=== PATIENT | female | born 1970 | race Caucasian/White ===

== ENCOUNTER 2017-04-07 07:55 | Outpatient (RCR) | payer OTHER ==
[2017-01-09 07:35] VITALS: BP 146/88
[2017-01-09] MEDS: OMALIZUMAB 150 MG (XOLAIR) VIAL FREE STOCK SQ SCH (08:10)
[2017-01-09 10:10] VITALS: BP 146/88
[2017-02-06] MEDS: OMALIZUMAB 150 MG (XOLAIR) VIAL FREE STOCK SQ SCH (08:30)
[2017-02-06 08:55] VITALS: BP 136/87
[2017-03-10] MEDS: OMALIZUMAB 150 MG (XOLAIR) VIAL FREE STOCK SQ SCH (08:34)
[2017-03-10 09:02] VITALS: BP 139/86
[~2017-04-07] VITALS: Ht 165.1 cm; Wt 69.0 kg
[~2017-04-07 07:55] MED LIST: EPIN0.3P2 IJ; LEVO5TAB12 PO; NF-METHI10 PO
[2017-04-07] MEDS: OMALIZUMAB 150 MG (XOLAIR) VIAL FREE STOCK SQ SCH (08:26)
[2017-04-07 08:46] VITALS: BP 159/89
== END 2017-04-09 | disposition home or self-care (01) ==
LOC: SDC 07:55
PROVIDERS: ATTEND Otolaryngology Otolaryngology/Facial Plastic Surgery
DX: L50.9 Urticaria, unspecified (principal)
CPT/HCPCS: 96372

== ENCOUNTER 2017-05-05 07:51 | Outpatient (RCR) | payer OTHER ==
[~2017-05-05] VITALS: Ht 165.1 cm; Wt 69.0 kg
[2017-05-05] MEDS ORDERED: OMALIZUMAB SUB-Q 150 MG (XOLAIR) VIAL SQ SCH (08:15)
[2017-05-05] MEDS ORDERED: OMALIZUMAB 150 MG (XOLAIR) VIAL FREE STOCK SQ SCH (08:15)
[2017-05-05 09:00] VITALS: BP 167/96
== END 2017-05-24 | disposition home or self-care (01) ==
LOC: SDC 07:51
PROVIDERS: ATTEND Otolaryngology Otolaryngology/Facial Plastic Surgery
DX: L50.9 Urticaria, unspecified (principal)
CPT/HCPCS: 96372

== ENCOUNTER 2017-08-15 10:34 | Outpatient (RCR) | payer OTHER ==
[2017-06-02 07:55] VITALS: BP 140/88
[2017-06-02] MEDS: OMALIZUMAB 150 MG (XOLAIR) VIAL FREE STOCK SQ SCH (08:47)
[2017-06-30] MEDS: OMALIZUMAB 150 MG (XOLAIR) VIAL FREE STOCK SQ SCH (08:30)
[2017-06-30 08:32] VITALS: BP 140/91
[~2017-08-15] VITALS: Ht 165.1 cm; Wt 69.0 kg
[~2017-08-15 10:34] MED LIST changes: +EPINEPHrine INJECTION 1 MG/ML AMP SC PRN; +diphenhydrAMINE 50 MG/ML INJ (BENADRYL) IV PRN
[2017-08-15] MEDS: OMALIZUMAB 150 MG (XOLAIR) VIAL FREE STOCK SQ SCH (11:10)
[2017-08-15 11:24] VITALS: BP 147/85
== END 2017-08-31 | disposition home or self-care (01) ==
LOC: SDC 10:34
PROVIDERS: ATTEND Otolaryngology Otolaryngology/Facial Plastic Surgery
DX: L50.9 Urticaria, unspecified (principal)
CPT/HCPCS: 96372

== ENCOUNTER 2017-12-10 08:00 | Outpatient (RCR) | payer OTHER ==
[2017-09-12] MEDS: OMALIZUMAB SUB-Q 150 MG (XOLAIR) VIAL SQ SCH (08:51)
[2017-09-12 08:53] VITALS: BP 151/93
[2017-10-17] MEDS: OMALIZUMAB SUB-Q 150 MG (XOLAIR) VIAL SQ SCH (08:40)
[2017-10-17 08:55] VITALS: BP 131/85
[2017-11-05 14:38] VITALS: BP 164/91
[~2017-12-10] VITALS: Ht 165.1 cm; Wt 69.0 kg
[2017-12-10 08:00] VITALS: BP 161/95
[~2017-12-10 08:00] MED LIST changes: -EPINEPHrine INJECTION 1 MG/ML AMP SC PRN; +OMALIZUMAB 150 MG (XOLAIR) VIAL FREE STOCK SQ ONE; +OMALIZUMAB 150 MG (XOLAIR) VIAL FREE STOCK SQ SCH; -diphenhydrAMINE 50 MG/ML INJ (BENADRYL) IV PRN
== END 2017-12-11 | disposition home or self-care (01) ==
LOC: SDC 08:00
PROVIDERS: ATTEND Otolaryngology Otolaryngology/Facial Plastic Surgery
DX: L50.9 Urticaria, unspecified (principal)
CPT/HCPCS: 96372

== ENCOUNTER 2018-02-17 07:58 | Outpatient (RCR) | payer OTHER ==
[~2018-02-17] VITALS: Ht 165.1 cm; Wt 69.0 kg
[~2018-02-17 07:58] MED LIST changes: -OMALIZUMAB 150 MG (XOLAIR) VIAL FREE STOCK SQ ONE; -OMALIZUMAB 150 MG (XOLAIR) VIAL FREE STOCK SQ SCH
[2018-02-17] MEDS ORDERED: OMALIZUMAB 150 MG (XOLAIR) VIAL FREE STOCK SQ SCH (08:10)
[2018-02-17 08:35] VITALS: BP 159/92
== END 2018-05-18 | disposition home or self-care (01) ==
LOC: SDC 07:58
PROVIDERS: ATTEND Otolaryngology Otolaryngology/Facial Plastic Surgery
DX: L50.9 Urticaria, unspecified (principal)
CPT/HCPCS: 96372

== ENCOUNTER 2018-05-19 07:57 | Outpatient (RCR) | payer OTHER ==
[~2018-05-19] VITALS: Ht 165.1 cm; Wt 69.0 kg
[2018-05-19] MEDS ORDERED: OMALIZUMAB 150 MG (XOLAIR) VIAL FREE STOCK SQ SCH (08:15)
[2018-05-19 08:38] VITALS: BP 142/87
== END 2018-05-24 | disposition home or self-care (01) ==
LOC: SDC 07:57
PROVIDERS: ATTEND Otolaryngology Otolaryngology/Facial Plastic Surgery
DX: L50.9 Urticaria, unspecified (principal)
CPT/HCPCS: 96372

== ENCOUNTER 2018-11-17 07:56 | Outpatient (RCR) | payer OTHER ==
[2018-08-28] MEDS: OMALIZUMAB 150 MG (XOLAIR) VIAL FREE STOCK SQ SCH (08:42)
[2018-08-28 08:45] VITALS: BP 158/89
[2018-10-05] MEDS: OMALIZUMAB 150 MG (XOLAIR) VIAL FREE STOCK SQ SCH (08:44)
[2018-10-05 08:45] VITALS: BP 159/80
[~2018-11-17] VITALS: Ht 165.1 cm; Wt 69.0 kg
[2018-11-17 08:00] VITALS: BP 153/95
[2018-11-17] MEDS ORDERED: OMALIZUMAB 150 MG (XOLAIR) VIAL FREE STOCK SQ SCH (08:15)
== END 2018-11-26 | disposition home or self-care (01) ==
LOC: SDC 07:56
PROVIDERS: ATTEND Otolaryngology Otolaryngology/Facial Plastic Surgery
DX: L50.9 Urticaria, unspecified (principal)
CPT/HCPCS: 96372

== ENCOUNTER 2019-02-05 08:01 | Outpatient (RCR) | payer OTHER ==
[2019-01-07] MEDS: OMALIZUMAB 150 MG (XOLAIR) VIAL FREE STOCK SQ SCH (08:25)
[2019-01-07 08:30] VITALS: BP 145/90
--- NOTE | 2019-01-15 13:57 | Physician Query-Final Dx ---
Clinic Account Progress/Dx Physician Query: Dr Esteban Please give a diagnosis for the Xolair treatment thank you Date of Service January 07, 2019 at 07:46 CHARLIE BLAND January 15, 2019 13:57
[~2019-02-05] VITALS: Ht 165.1 cm; Wt 69.0 kg
[2019-02-05 08:30] VITALS: BP 145/79
[2019-02-05] MEDS: OMALIZUMAB 150 MG (XOLAIR) VIAL FREE STOCK SQ SCH (08:43)
== END 2019-04-07 | disposition home or self-care (01) ==
LOC: SDC 08:01
PROVIDERS: ATTEND Otolaryngology Otolaryngology/Facial Plastic Surgery
DX: L50.9 Urticaria, unspecified (principal)
CPT/HCPCS: 96372

== ENCOUNTER 2019-07-01 07:55 | Outpatient (RCR) | payer BC ==
[2019-04-21 08:43] VITALS: BP 162/89
[2019-05-19 07:55] VITALS: BP 160/93
[~2019-07-01] VITALS: Ht 165.1 cm
[~2019-07-01 07:55] MED LIST changes: +OMALIZUMAB 150 MG (XOLAIR) VIAL FREE STOCK SQ SCH
[2019-07-01 08:57] VITALS: BP 145/87
== END 2019-07-01 08:45 | disposition home or self-care (01) ==
LOC: SDC 07:55
PROVIDERS: ATTEND Otolaryngology Otolaryngology/Facial Plastic Surgery
DX: L50.9 Urticaria, unspecified (principal)
CPT/HCPCS: 96372

== ENCOUNTER → 2019-08-12 | Outpatient (CLI) | payer BC ==
[2019-08-12 07:50] VITALS: BP 149/88
== END ==
LOC: SDC 07:52
PROVIDERS: ATTEND Otolaryngology Otolaryngology/Facial Plastic Surgery
DX: L50.9 Urticaria, unspecified (principal)
CPT/HCPCS: 96372

== ENCOUNTER → 2019-09-23 | Outpatient (CLI) | payer BC ==
[2019-09-23 08:37] VITALS: BP 169/87
== END ==
LOC: SDC 07:46
PROVIDERS: ATTEND Otolaryngology Otolaryngology/Facial Plastic Surgery
DX: L50.9 Urticaria, unspecified (principal)
CPT/HCPCS: 96372

== ENCOUNTER 2019-12-22 07:58 | Outpatient (RCR) | payer BC ==
[2019-11-10 08:02] VITALS: BP 139/92
[2019-11-10] MEDS: OMALIZUMAB 150 MG (XOLAIR) VIAL FREE STOCK SQ SCH (08:44)
[2019-12-22] MEDS: OMALIZUMAB 150 MG (XOLAIR) VIAL FREE STOCK SQ SCH (08:26)
[2019-12-22 08:35] VITALS: BP 151/91
[2020-02-10] MEDS ORDERED: OMALIZUMAB 150 MG (XOLAIR) VIAL FREE STOCK SQ SCH (08:15)
== END 2020-02-08 | disposition home or self-care (01) ==
LOC: SDC 07:58
PROVIDERS: ATTEND Otolaryngology Otolaryngology/Facial Plastic Surgery
DX: L50.9 Urticaria, unspecified (principal)
CPT/HCPCS: 96372

== ENCOUNTER 2020-02-10 08:01 | Outpatient (RCR) | payer BC ==
[~2020-02-10 08:01] MED LIST changes: -OMALIZUMAB 150 MG (XOLAIR) VIAL FREE STOCK SQ SCH
[2020-02-10 08:33] VITALS: BP 147/95
[2020-02-10] MEDS ORDERED: OMALIZUMAB 150 MG (XOLAIR) VIAL FREE STOCK SQ SCH (10:45)
== END 2020-04-13 08:04 | disposition home or self-care (01) ==
LOC: SDC 08:01
PROVIDERS: ATTEND Allergy & Immunology Clinical & Laboratory Immunology
DX: L50.9 Urticaria, unspecified (principal)
CPT/HCPCS: 96372

== ENCOUNTER → 2020-04-13 | Outpatient (CLI) | payer BC ==
[~2020-04-13] VITALS: Ht 162.6 cm
[~2020-04-13] MED LIST changes: +OMALIZUMAB 150 MG (XOLAIR) VIAL FREE STOCK SQ SCH
[2020-04-13 08:43] VITALS: BP 143/91
== END ==
LOC: EDSTATUS 04-06 09:00 → SDC 08:02
PROVIDERS: ATTEND Allergy & Immunology Clinical & Laboratory Immunology
DX: Z01.89 Encounter for other specified special examinations (principal)
CPT/HCPCS: 96372

== ENCOUNTER → 2020-06-08 | Outpatient (CLI) | payer BC ==
[~2020-06-08] VITALS: Ht 165.1 cm; Wt 77.3 kg
[2020-06-08 08:50] VITALS: BP 153/84
== END ==
LOC: EDSTATUS 04-13 08:00 → SDC 08:13
PROVIDERS: ATTEND Allergy & Immunology Clinical & Laboratory Immunology
DX: Z51.81 Encounter for therapeutic drug level monitoring (principal)
CPT/HCPCS: 96372

== ENCOUNTER → 2020-08-03 | Outpatient (CLI) | payer BC ==
[~2020-08-03] MED LIST changes: +OMALIZUMAB 150 MG (XOLAIR) VIAL FREE STOCK SQ ONE; -OMALIZUMAB 150 MG (XOLAIR) VIAL FREE STOCK SQ SCH
[2020-08-03 08:42] VITALS: BP 145/97
== END ==
LOC: SDC 08:00
PROVIDERS: ATTEND Allergy & Immunology Clinical & Laboratory Immunology
DX: Z51.81 Encounter for therapeutic drug level monitoring (principal)
CPT/HCPCS: 96372

== ENCOUNTER 2020-09-29 07:58 | Outpatient (CLI) | payer BC ==
[~2020-09-29 07:58] MED LIST changes: -OMALIZUMAB 150 MG (XOLAIR) VIAL FREE STOCK SQ ONE
[2020-09-29 08:00] VITALS: BP 130/89
[2020-09-29] MEDS ORDERED: OMALIZUMAB 150 MG (XOLAIR) VIAL FREE STOCK SQ SCH (08:15)
== END 2020-09-29 08:45 | disposition home or self-care (01) ==
LOC: SDC 07:58
PROVIDERS: ATTEND Allergy & Immunology Clinical & Laboratory Immunology
DX: Z01.89 Encounter for other specified special examinations (principal)
CPT/HCPCS: 96372

== ENCOUNTER → 2020-11-24 | Outpatient (CLI) | payer BC ==
[~2020-11-24] VITALS: Ht 165.1 cm
[~2020-11-24] MED LIST changes: +OMALIZUMAB 150 MG (XOLAIR) VIAL FREE STOCK SQ SCH; +OMALIZUMAB SUB-Q 150 MG (XOLAIR) VIAL SQ SCH
[2020-11-24 08:00] VITALS: BP 142/85
== END ==
LOC: SDC 07:51
PROVIDERS: ATTEND Allergy & Immunology Clinical & Laboratory Immunology
DX: Z01.89 Encounter for other specified special examinations (principal)
CPT/HCPCS: 96372